=== PATIENT | female | born 1990 | race Caucasian/White ===

== ENCOUNTER 2017-01-21 18:35 | Emergency (ER) | payer SELFPAY ==
[~2017-01-21] VITALS: Ht 172.7 cm; Wt 95.7 kg
[~2017-01-21 18:35] MED LIST: AUGMENTIN 875 M1 TAB PO; CLARITIN10 MG PO; NKHM
== END 2017-01-21 20:13 | disposition home or self-care (01) ==
LOC: ED 18:35
DX: H10.31 Unspecified acute conjunctivitis, right eye (principal)

== ENCOUNTER 2017-07-07 21:42 | Emergency (ER) | payer OTHER ==
[~2017-07-07] VITALS: Ht 172.7 cm; Wt 85.7 kg
[2017-07-07] MEDS ORDERED: CYCLOBENZAPRINE5 M3 PO (23:35)
[2017-07-07] MEDS ORDERED: Motrin,Rufen800 MG PO (23:35)
== END 2017-07-07 23:38 | disposition home or self-care (01) ==
LOC: ED 21:42
DX: M54.5 Low back pain (principal); X50.0XXA Overexertion from strenuous movement or load, initial encounter; Y93.89 Activity, other specified; Y92.69 Other specified industrial and construction area as the place of occurrence of the external cause; Y99.9 Unspecified external cause status

== ENCOUNTER 2018-07-13 09:24 | Emergency (ER) | payer OTHER ==
[~2018-07-13] VITALS: Wt 106.2 kg
--- NOTE | ~2018-07-13 | EKG ---
[place], [place] ELECTROCARDIOGRAM REPORT NAME: EVELINE DOLL UNIT #: [id number] ROOM: DOCTOR: EPIPHANY DRAFT REPORT BIRTHDATE: [birth year] [facility] Test Date: 2018-07-13 Test Time: 09:45:52 Pat Name: EVELINE DOLL Department: Room: Gender: F Valet: Carmencita Burgos : 1990 Requested By: SCOTTY JONES DNP Order Number: [id number] Reading MD: Viola Richard MD Measurements Intervals [place] Rate: 125 P: 58 AL: 127 QRS: 42 QRSD: 79 T: -10 QT: 312 QTc: 450 Interpretive Statements Sinus tachycardia Multiple premature complexes, vent \T\ supraven Borderline T abnormalities, inferior leads No previous ECG available for comparison Electronically Signed On 07-14-2018 9:11:02 PDT by Viola Richard MD CM:EKGRPT:ELECTROCARDIOGRAM REPORT SCOTTY JONES DNP EPIPHBANNER DRAFT REPORT SCOTTY JONES DNP
[~2018-07-13 09:24] MED LIST changes: +CYCLOBENZAPRINE5 M3 PO; +Motrin,Rufen800 MG PO
[2018-07-13] MEDS ORDERED: ASPIR LOW81 MG PO (09:28)
[2018-07-13] MEDS ORDERED: PRENATAL VITAM1 EAC3 PO (09:28)
[2018-07-13] MEDS ORDERED: ONDANSETRON HYDR8 MG PO (09:29)
[2018-07-13 09:55] LABS: BASO # 0.1 10*3/uL (0.0-0.1); BASO % 0.7 % (0.0-1.0); EOS # 0.2 10*3/uL (0.0-0.4); EOS % 2.1 % (1.0-4.0); HEMATOCRIT 33.5 % (37.0-47.0); HEMOGLOBIN 11.3 g/dl (12.0-16.0); LYMPH # 2.8 10*3/uL (1.3-4.4); LYMPH % 27.9 % (27.0-41.0); MEAN CELL VOLUME 88.6 fl (81.0-99.0); MEAN CORPUSCULAR HGB 29.9 pg (27.0-31.0); MEAN CORPUSCULAR HGB CONC 33.7 g/dl (33.0-37.0); MEAN PLATELET VOLUME 11.4 fl (9.6-12.3); MONO # 0.7 10*3/uL (0.1-1.0); MONO % 6.5 % (3.0-9.0); NEUT # 6.3 10*3/uL (2.3-7.9); NEUT % 62.1 % (47.0-73.0); PLATELET COUNT AUTOMATED 232 10*3/uL (130-400); RED BLOOD COUNT 3.78 10*6/uL (4.10-5.10); RED CELL DISTRI WIDTH 12.8 % (0-14.5); WHITE BLOOD COUNT 10.1 10*3/uL (4.8-10.8)
[2018-07-13 10:06] LABS: ACT PARTIAL THROMBO TIME 22.5 SECONDS (20.0-32.1); INTERNATIONAL NORM RATIO 0.9 (2.0-3.5)
[2018-07-13 10:12] LABS: ALBUMIN 2.8 gm/dl (3.1-4.5); ALKALINE PHOSPHATASE 111 U/L (45-117); BUN 3 mg/dl (7-24); CHLORIDE 108 mmol/L (98-107); CREATININE 0.55 mg/dL (0.55-1.02); LIPASE 73 U/L (73-393); POTASSIUM 3.6 mmol/L (3.5-5.1); SGOT/AST 15 IU/L (3-35); SGPT/ALT 19 U/L (12-78); SODIUM 137 mmol/L (136-145); TOTAL PROTEIN 6.9 gm/dL (6.4-8.2)
[2018-07-13 10:14] LABS: TROPONIN I < 0.015 ng/ml (<0.045)
[2018-07-13 12:20] LABS: BILIRUBIN NEGATIVE (NEGATIVE); BLOOD NEGATIVE (NEGATIVE); CLARITY SL CLOUDY (CLEAR); COLOR YELLOW (YELLOW); GLUCOSE NEGATIVE (NEGATIVE); KETONE NEGATIVE (NEGATIVE); LEUKO ESTERASE TRACE (NEGATIVE); NITRITE NEGATIVE (NEGATIVE)
[2018-07-13 12:35] LABS: WBC 16-20 wbc/hpf (0-5)
[2018-07-13 12:36] LABS: BACTERIA 1+; EPITHELIAL CELLS 15-20
== END 2018-07-13 16:05 | disposition short-term general hospital (02) ==
LOC: ED 09:24
PROVIDERS: Nurse Practitioner Family
DX: O30.003 Twin pregnancy, unspecified number of placenta and unspecified number of amniotic sacs, third trimester (principal); R55 Syncope and collapse; R06.02 Shortness of breath; Z3A.27 27 weeks gestation of pregnancy; Z79.82 Long term (current) use of aspirin; Z79.899 Other long term (current) drug therapy

== ENCOUNTER 2018-10-02 23:19 | Emergency (ER) | payer OTHER ==
--- NOTE | ~2018-10-02 | EKG ---
[place], [place] ELECTROCARDIOGRAM REPORT NAME: EVELINE DOLL UNIT #: [id number] ROOM: DOCTOR: EPIPHANY DRAFT REPORT BIRTHDATE: [birth year] [facility] Test Date: 2018-10-02 Test Time: 23:45:51 Pat Name: EVELINE DOLL Department: ED Room: Gender: F [employer]: Edvin Diop : 1990 Requested By: SAEID FLORES Order Number: [id number] Reading MD: Emily Monaco MD Measurements Intervals [place] Rate: 122 P: 43 [place]: 127 QRS: 41 QRSD: 84 T: -31 QT: 328 QTc: 468 Interpretive Statements Sinus tachycardia Borderline repolarization abnormality Compared to ECG 07/13/2018 09:45:52 T-wave abnormality no longer present Electronically Signed On 10-16-2018 7:28:11 PDT by Emily Monaco MD CM:EKGRPT:ELECTROCARDIOGRAM REPORT [id number] SAEID SAENZ DRAFT REPORT SAEID FLORES DO
[~2018-10-02 23:19] MED LIST changes: +ASPIR LOW81 MG PO; +ONDANSETRON HYDR8 MG PO; +PRENATAL VITAM1 EAC3 PO
[2018-10-02] MEDS ORDERED: PERCOCET 5-3251 EACH PO (23:24)
[2018-10-02] MEDS ORDERED: Lovenox40 MG/0.4 SC (23:24)
[2018-10-03 00:27] LABS: HEMATOCRIT 21.1 % (37.0-47.0); MEAN CELL VOLUME 88.7 fl (81.0-99.0); MEAN CORPUSCULAR HGB 28.2 pg (27.0-31.0); MEAN CORPUSCULAR HGB CONC 31.8 g/dl (33.0-37.0); MEAN PLATELET VOLUME 10.8 fl (9.6-12.3); PLATELET COUNT AUTOMATED 276 10*3/uL (130-400); RED BLOOD COUNT 2.38 10*6/uL (4.10-5.10); RED CELL DISTRI WIDTH 14.2 % (0-14.5); WHITE BLOOD COUNT 12.9 10*3/uL (4.8-10.8)
[2018-10-03 00:34] LABS: HEMOGLOBIN 6.7 g/dl (12.0-16.0)
[2018-10-03 00:37] LABS: ACT PARTIAL THROMBO TIME 28.9 SECONDS (20.0-32.1)
[2018-10-03 00:44] LABS: ALBUMIN 1.9 gm/dl (3.1-4.5); ALKALINE PHOSPHATASE 166 U/L (45-117); BUN 9 mg/dl (7-24); CHLORIDE 105 mmol/L (98-107); CPK 12 U/L (26-192); CREATININE 0.49 mg/dL (0.55-1.02); POTASSIUM 3.8 mmol/L (3.5-5.1); SGOT/AST 11 IU/L (3-35); SGPT/ALT 20 U/L (12-78); SODIUM 138 mmol/L (136-145); TROPONIN I < 0.015 ng/ml (<0.045)
[2018-10-03 00:51] LABS: MICROCYTOSIS SLIGHT; PLATELET SUFFICIENCY NORMAL (NORMAL); POLYCHROMASIA SLIGHT; TOTAL CELLS COUNTED 100 #CELLS
== END 2018-10-03 03:45 | disposition short-term general hospital (02) ==
LOC: ED 23:19
PROVIDERS: Student in an Organized Health Care Education/Training Program
DX: O90.81 Anemia of the puerperium (principal); O90.89 Other complications of the puerperium, not elsewhere classified; R42 Dizziness and giddiness; R20.2 Paresthesia of skin; R68.83 Chills (without fever); Z79.899 Other long term (current) drug therapy